=== PATIENT | female | born 1975 | race African-American/Black ===

== ENCOUNTER → 2018-09-13 | Outpatient (CLI) | payer OTHER ==
--- NOTE | 2018-09-13 15:58 | RADIOLOGY REPORT (SQ) ---
EXAM DESCRIPTION: HUMERUS LEFT COMPLETED DATE/TIME: 09/13/2018 3:49 pm REASON FOR STUDY: LEFT UPPER ARM Nexplanon non palpable COMPARISON: None. NUMBER OF VIEWS: Two views. TECHNIQUE: Two radiographic images were acquired of the left humerus to include elbow and shoulder i n at least one projection. LIMITATIONS: None. FINDINGS: MINERALIZATION: Normal. BONES: No acute fracture or dislocation. No worrisome bone lesions. SOFT TISSUES: Subcutaneous Nexplanon implant projects in the soft tissues about the medial distal le ft arm. OTHER: No other significant finding. IMPRESSION: Subcutaneous Nexplanon implant projects in the soft tissues about the medial distal left arm. TECHNICAL DOCUMENTATION: JOB ID: [id number] [employer]- All Rights Reserved Reading location - IP/workstation name: [email or web address]
== END ==
LOC: RAD 15:29
PROVIDERS: ATTEND Advanced Practice Midwife
DX: Z30.46 Encounter for surveillance of implantable subdermal contraceptive (principal)